=== PATIENT | male | born 1975 | race Caucasian/White ===

== ENCOUNTER 2017-06-25 13:58 | Emergency (ER) | payer OTHER, BC ==
[2017-06-25] MEDS: NS 1,000 ML IV (15:00)
[2017-06-25] MEDS: methylPREDNISolone INJ 125 MG/2 ML VIAL (J2930) IV (15:00)
== END 2017-06-25 16:30 | disposition home or self-care (01) ==
LOC: M ED 13:58
DX: T78.1XXA Other adverse food reactions, not elsewhere classified, initial encounter (principal); R21 Rash and other nonspecific skin eruption; R22.0 Localized swelling, mass and lump, head; I10 Essential (primary) hypertension; Z91.041 Radiographic dye allergy status; Z91.018 Allergy to other foods; Z91.030 Bee allergy status; Z91.013 Allergy to seafood; Z79.899 Other long term (current) drug therapy
CPT/HCPCS: J2930